=== PATIENT | male | born 1995 | race Caucasian/White ===

== ENCOUNTER 2023-03-25 22:22 | Emergency (ER) | payer OTHER ==
[~2023-03-25] VITALS: Ht 170.2 cm; Wt 80.0 kg
[2023-03-25 22:26] VITALS: BP 138/71; PULSE 85; RESP 16; TEMP 98.2; O2SAT 98
== END 2023-03-25 23:21 ==
LOC: ER 22:22
DX: F10.129 Alcohol abuse with intoxication, unspecified (principal); Y90.9 Presence of alcohol in blood, level not specified
CPT/HCPCS: 99283

== ENCOUNTER 2024-04-24 19:00 | Emergency (ER) | payer MEDICARE, OTHER ==
[~2024-04-24] VITALS: Ht 177.8 cm; Wt 85.0 kg
[2024-04-24 19:09] VITALS: O2SAT 99
[2024-04-24] MEDS ORDERED: CARB15DR63 EACH EAR (21:24)
[2024-04-24 21:33] VITALS: BP 129/77; PULSE 79; RESP 20; TEMP 36.72516; O2SAT 100
== END 2024-04-24 21:34 | disposition home or self-care (01) ==
LOC: ER 19:00
DX: H61.23 Impacted cerumen, bilateral (principal)
CPT/HCPCS: 69209; 99282